=== PATIENT | female | born 1975 | race Caucasian/White ===

== ENCOUNTER → 2022-12-23 | Day surgery (SDC) | payer OTHER | END | disposition home or self-care (01) | LOC: FMAMMOTONE 08:42 | PROC: 0HBU3ZX Excision of Left Breast, Percutaneous Approach, Diagnostic (ICD-10-PCS; principal; 2022-12-23) | DX: N60.12 Diffuse cystic mastopathy of left breast (principal); N60.32 Fibrosclerosis of left breast; N60.82 Other benign mammary dysplasias of left breast; N64.89 Other specified disorders of breast; R92.0 Mammographic microcalcification found on diagnostic imaging of breast | CPT/HCPCS: 19081; 76098-TC-FY; 87899; 88305-TC; A4648 ==

== ENCOUNTER 2023-01-18 04:30 | Emergency (ER) | payer OTHER ==
[2023-01-18 04:39] VITALS: BP 122/79; RESP 18; TEMP 98.1; BMI 34.7
[2023-01-18 05:03] VITALS: PULSE 74
[2023-01-18] MEDS ORDERED: CEPHALEXIN MONOHYDRATE 500 MG CAPSULE (UD) PO ONE (05:24)
[2023-01-18] MEDS ORDERED: IBUPROFEN 600 MG TABLET (FP) PO ONE ×2 (05:24→05:27)
[2023-01-18] MEDS ORDERED: CEPHALEXIN MONOHYDRATE 500 MG CAPSULE (UD) ONE (05:26)
== END 2023-01-18 05:43 | disposition home or self-care (01) ==
LOC: JER 04:30
DX: N64.4 Mastodynia (principal); R51.9 Headache, unspecified
CPT/HCPCS: 99283-25

== ENCOUNTER 2023-03-27 11:33 | Emergency (ER) | payer OTHER ==
[2023-03-27 11:52] VITALS: BP 124/79; PULSE 91; RESP 16; TEMP 98.1; BMI 34.8
[2023-03-27] MEDS ORDERED: ACETAMINOPHEN 325 MG TABLET (FP) PO ONE (12:04)
[2023-03-27] MEDS ORDERED: ACETAMINOPHEN 325 MG TABLET (FP) ONE (12:09)
== END 2023-03-27 14:50 | disposition home or self-care (01) ==
LOC: FER 11:33
DX: N64.4 Mastodynia (principal)
CPT/HCPCS: 76641-TC-LT; 99284-25

== ENCOUNTER 2023-03-30 09:39 | Emergency (ER) | payer OTHER ==
[2023-03-30 09:54] VITALS: BP 115/74; PULSE 91; RESP 16; TEMP 98.1; BMI 34.7
[2023-03-30] MEDS ORDERED: IBUPROFEN 400 MG TABLET (FP) PO ONE ×2 (11:22→11:34)
[2023-03-30] MEDS ORDERED: ACETAMINOPHEN 325 MG TABLET (FP) PO ONE (11:22)
[2023-03-30] MEDS ORDERED: ACETAMINOPHEN 325 MG TABLET (FP) ONE (11:33)
[2023-03-30 12:06] LABS: EOS % 4.3 % (0-4.5); HEMATOCRIT 46.2 % (32.4-45.2); HEMOGLOBIN 15.3 GM/dL (10.7-15.3); LYMPH % 30.2 % (8-40); MCH 30.1 pg (25.7-33.7); MCHC 33.1 g/dl (32.0-36.0); MEAN CELL VOLUME 90.9 fl (80-96); MEAN PLT VOLUME 8.7 fl (7.5-11.1); MONO % 9.1 % (3.8-10.2); NEUT % 55.4 % (42.8-82.8); PLATELET COUNT 330 10^3/uL (134-434); RBC 5.08 M/mm3 (3.60-5.2); RDW 14.2 % (11.6-15.6); WHITE BLOOD COUNT 11.8 K/mm3 (4.0-10.0)
[2023-03-30 12:30] LABS: POTASSIUM 4.4 mmol/L (3.5-5.1)
[2023-03-30 12:33] LABS: CALCIUM 9.2 mg/dL (8.5-10.1)
[2023-03-30 12:34] LABS: ALBUMIN 3.7 g/dl (3.4-5.0); BLOOD UREA NITROGEN 9.1 mg/dL (7-18)
[2023-03-30 12:37] LABS: CREATININE 0.6 mg/dL (0.55-1.3)
[2023-03-30 12:38] LABS: BILIRUBIN,TOTAL 0.3 mg/dL (0.2-1); TOT PROT 7.7 g/dl (6.4-8.2)
== END 2023-03-30 14:28 | disposition home or self-care (01) ==
LOC: JER 09:39
DX: N64.4 Mastodynia (principal); R50.9 Fever, unspecified; R53.1 Weakness
CPT/HCPCS: 36415; 76642-TC-LT; 80053; 85025; 99284-25

== ENCOUNTER 2023-05-13 05:22 | Day surgery (SDC) | payer OTHER ==
[2023-05-11 11:43] VITALS: BMI 35.5
[2023-05-13 11:11] VITALS: BP 113/67; PULSE 85; RESP 18; TEMP 97.8
[2023-05-13] MEDS ORDERED: LIDOCAINE 1%/EPI 1:100000 (20 ML MULTI DOSE VIAL) ONE (12:41)
[2023-05-13] MEDS ORDERED: BUPIVACAINE HCL/PF 0.5% (5MG/ML) 10 ML VIAL ONE (12:41)
== END 2023-05-13 12:45 | disposition home or self-care (01) ==
LOC: JASU-SURG 05:22
PROVIDERS: ATTEND Surgery Surgical Oncology
PROC: BH40ZZZ Ultrasonography of Right Breast (ICD-10-PCS; principal; 2023-05-13)
DX: N61.0 Mastitis without abscess (principal)
CPT/HCPCS: 19281; 81025; A4648

== ENCOUNTER 2023-06-24 04:22 | Day surgery (SDC) | payer OTHER ==
[2023-06-19 15:08] VITALS: BMI 35.5
[2023-06-24] MEDS ORDERED: BUPIVACAINE HCL/PF 0.25% (2.5MG/ML) 10 ML VIAL ONE (11:10)
[2023-06-24] MEDS ORDERED: PROPOFOL 20 ML ONE ×2 (11:44→12:09)
[2023-06-24] MEDS ORDERED: MIDAZOLAM HCL 2 MG/2 ML SINGLE DOSE VIAL ONE (11:44)
[2023-06-24] MEDS ORDERED: BENZOIN/ALOE VERA/STORAX/TOLU 58 ML BOTTLE ONE (12:22)
[2023-06-24] MEDS ORDERED: BUPIVACAINE HCL/PF 0.25% (2.5MG/ML) 10 ML VIAL IJ ONE (12:25)
[2023-06-24] MEDS ORDERED: ONDANSETRON 4 MG/2 ML VIAL IVPUSH PRN (12:37)
[2023-06-24] MEDS ORDERED: oxyCODONE HCL 5 MG TABLET PO PRN (12:37)
[2023-06-24] MEDS ORDERED: ACETAMINOPHEN 325 MG TABLET (FP) PO PRN (12:37)
[2023-06-24] MEDS ORDERED: ACETAMINOPHEN INJECTION 100 ML IVPB ONE (12:40)
[2023-06-24] MEDS ORDERED: ACETAMINOPHEN 1000 MG/100 ML BAG IVPB ONE ×2 (12:40→14:02)
[2023-06-24] MEDS ORDERED: LACTATED RINGERS SOLUTION 1,000 ML IV SCH (12:45)
[2023-06-24 14:33] VITALS: RESP 16; TEMP 97.2
[2023-06-24 14:36] VITALS: BP 127/69; PULSE 82
== END 2023-06-24 14:45 | disposition home or self-care (01) ==
LOC: JASU-SURG 04:22
PROVIDERS: ATTEND Surgery Surgical Oncology
PROC: 0HBU0ZX Excision of Left Breast, Open Approach, Diagnostic (ICD-10-PCS; principal; 2023-06-24 12:00)
DX: N60.12 Diffuse cystic mastopathy of left breast (principal)
CPT/HCPCS: 76098-TC-FY; 81025; 94760